=== PATIENT | female | born 1965 | race African-American/Black ===

== ENCOUNTER → 2018-11-19 | Day surgery (SDC) | payer OTHER ==
[~2018-11-19] MED LIST: BACITRACIN 50,000 UNIT VIAL ONE; BUPIVACAINE HCL 0.5% INJ 30 ML VIAL INJ ONE; CEFAZOLIN SOD 1 GM/NS 50ML 50 ML IV ONE; DEXAMETHASONE SOD PHOS INJ 4 MG/ML VIAL ONE; ESMOLOL HCL 100MG/10ML 10 MG/ML VIAL ONE; FENTANYL CITRATE/PF 100MCG/2 ML INJ ONE; GLYCOPYRROLATE INJ 1MG/ 5 ML SYR ONE; LIDOCAINE HCL 2% LOCAL INJ 5 ML SDV VIAL INJ ONE; MIDAZOLAM HCL 2 MG/2 ML VIAL ONE; ONDANSETRON HCL INJ 2MG/ML 2ML 2 MG/ML VIAL ONE; PROPOFOL IV EMULSION 10 MG/ML 20 ML VIAL ONE; SEVOFLURANE INHAL SOLN 250 ML PEN BTL ONE; ZOLOFT50 MG PO
[2018-11-19 08:45] VITALS: BP 159/92
--- NOTE | 2018-11-19 15:25 | Operative Report ---
DATE OF PROCEDURE: 11/19/2018 SURGEON: Rod Krishnan DPM PREOPERATIVE DIAGNOSIS: Right hallux rigidus. POSTOPERATIVE DIAGNOSIS: Right hallux rigidus. PLANNED PROCEDURE: Right Hinojosa bunionectomy with an implant. SURGEON: Justin Chvaira DPM ([place]). BUSINESS SYSTEMS ARCHITECT: Rod Krishnan DPM. ANESTHESIA: General with a postoperative block consisting of 15 mL of 0.5% Marcaine plain. HEMOSTASIS: Pneumatic thigh tourniquet set at 375 mmHg for a total time of approximately 30 minutes. MATERIALS: One size 2 [id number] Toe Reference implant, 2-0 Vicryl, 3-0 Vicryl, and 4-0 nylon. ESTIMATED BLOOD LOSS: Less than 10 mL. PATHOLOGY: None. PROCEDURE NOTE: The patient was seen in the preoperative waiting room. The correct procedure and site were identified. The patient was brought to the operating room and placed on operating table in supine position. General anesthesia was initiated. At this time, a well-padded pneumatic tourniquet was placed about the patient's right thigh. The right foot, ankle, and leg were then scrubbed, prepped, and draped in the usual aseptic manner. The right foot, ankle, and leg were exsanguinated with an Esmarch bandage. The pneumatic thigh tourniquet was inflated to 375 mmHg for a total time of approximately 30 minutes. Attention was directed to the distal aspect of the patient's right foot, where a 5 cm linear incision made directly over the 1st metatarsophalangeal joint. Incision was carried through subcutaneous tissue it from deeper underlying structures. All vital neurovascular structures were identified and retracted medially and laterally, and all bleeders were cauterized or ligated as deemed necessary. At this time, a linear capsulotomy was performed at the level of 1st metatarsophalangeal joint. It was freed of all capsular ligaments and attachments. It should be noted upon exploration of the joint, there was noted to be less than 30% articular cartilage remaining on the 1st metatarsal head. The decision was made to proceed with a Hinojosa bunionectomy. The proximal phalanx had bony overgrowth over the 1st metatarsal head. Utilizing sagittal saw, the base of the proximal phalanx approximately one-third was cut and passed off to the back table. Care was taken to ensure that the flexor hallucis longus tendon was not suffered. Next, utilizing a sagittal saw, the articular cartilage of the 1st metatarsal head was resected and passed off to the back table. Next, per manufacture protocol, a guidewire was placed and confirmed via intraoperative fluoroscopy. Reamers were used to the 1st metatarsal head as well as the proximal phalanx. The grommets were placed per manufacture protocol and tapped into position, followed by temporary sizer, followed by the actual implant. The incision site was then copiously irrigated with sterile saline mixed with bacitracin. Intraoperative fluoroscopy was utilized to make sure that the implant was in place and intact. Good range of motion was noted intraoperatively. Utilizing 2-0 Vicryl capsule and deep tissue reapproximated, subcutaneous tissue with 3-0 Vicryl, and the skin was closed using running interlocking stitch with 4-0 nylon. The patient tolerated the procedure and anesthesia well. The patient was transferred to the postop recovery room with vital signs stable and vascular status intact. The patient is monitored there for a short period of time before being sent home with the following written and oral instructions. 1. Keep the dressing clean, dry, and intact. 2. The patient is to remain partial weightbearing in a postop shoe to avoid excess ambulation until being seen in the office. 3. The patient was given the office number and instructed to contact us if any problems arise. SANTOSH Santamaria/KASIA /[id number]
== END | disposition home or self-care (01) ==
LOC: OR 05:00
PROVIDERS: ATTEND Podiatrist Foot & Ankle Surgery
DX: M20.21 Hallux rigidus, right foot (principal); M20.5X1 Other deformities of toe(s) (acquired), right foot; F32.9 Major depressive disorder, single episode, unspecified; Z88.2 Allergy status to sulfonamides; Z01.810 Encounter for preprocedural cardiovascular examination
CPT/HCPCS: 28291; 93005; J0690; J1100; J2001; J2250; J2405; J2704; J3010; J3490; L8642